=== PATIENT | female | born 1945 | race Caucasian/White ===

== ENCOUNTER 2016-10-09 07:15 | Day surgery (SDC) | payer OTHER ==
[~2016-10-09] VITALS: Ht 153.7 cm; Wt 92.5 kg
[~2016-10-09 07:15] MED LIST: ASPIRIN ADULT L81 M1 PO; ESTRADIOL0.5 MG PO; GABAPENTIN400 MG PO; HYDROCHLOROTHIA25 MG PO; IRON325 MG PO; LISINOPRIL10 MG PO; PRAVACHOL40 MG PO; VITAMIN C500 M1 PO
--- NOTE | 2016-10-09 10:14 | Provider's Discharge Care Plan ---
Problem, Goal, Plan Problem List 1. STATUS POST EGD Goals: Diagnostic testing, Screening Instructions: Follow up as directed, Take meds as directed
--- NOTE | 2016-10-09 10:14 | Provider's Discharge Care Plan ---
Problem, Goal, Plan Problem List 1. STATUS POST EGD Goals: Diagnostic testing, Screening Instructions: Follow up as directed, Take meds as directed
--- NOTE | 2016-10-09 10:23 | Operative Report ---
Operative Report Date of Surgery: 10/09/16 Preoperate Diagnosis: anemia, unknown etiology Postoperative Diagnosis: anemia, unknown etiology, colonoscopy, Schatzki's ring, hiata Surgeon: Bhargav Marshall MD Hvac Tech Surgeon: none Procedure Performed: Colonoscopy. EGD with gastric and esophageal mucosal biopsies Anesthesia: Total intravenous anesthesia Indications: This 71-year-old female six-month history of fatigue. Recent workup indicated patient was anemic. FINDINGS: Normal appearing cecum, ascending, transverse, descending and sigmoid colon. The rectal wall normal. EGD normal-appearing duodenum and duodenal bulb. The gastric mucosal pattern appeared grossly normal. EG junction approximately 40 cm from the dental incisors. Noted to have a Schatzki's ring and a small hiatal hernia. The radius was normal. Surgical Technique: Patient brought to the operating room placed in the left lateral decubitus position. Patient was administered total intravenous anesthesia.. Once anesthesia had taken affect, the posterior pharynx was sprayed using Cetacaine spray. An Olympus fiberoptic video upper GI endoscope was passed in to the patient's posterior pharynx. The esophagus intubated under direct visualization. The scope passed easily down the esophagus through the EG junction which was located approximately at 40 cm from the incisors. The scope passed easily through the EG junction into the gastric lumen and eventually into the second third portion of duodenum. On withdrawing the scope, the afore mentioned findings were noted. The scope was withdrawn into the gastric lumen and retroflexed. Good view of the cardia, fundus, EG junction from below, and greater and lesser curvature. Multiple random biopsies were obtained of the gastric mucosa to rule out H. pylori. The scope was withdrawn into the EG junction. Multiple random biopsies were obtained of the distal esophagus to rule out Castillo's esophagus. The scope was then completely withdrawn. Patient tolerated procedure well. Patient was transferred to the recovery room in stable condition. There were no intraoperative or anesthetic complications.
[2016-10-09 11:51] VITALS: BP 155/87
== END 2016-10-09 11:50 | disposition home or self-care (01) ==
LOC: OR SRH 07:15 → SCU SRH 07:31 → OR SRH 09:30
PROVIDERS: Specialist
PROC: 0DB68ZX Excision of Stomach, Via Natural or Artificial Opening Endoscopic, Diagnostic (ICD-10-PCS; principal; 2016-10-09 09:30)
PROC: 0DB38ZX Excision of Lower Esophagus, Via Natural or Artificial Opening Endoscopic, Diagnostic (ICD-10-PCS; principal; 2016-10-09 09:30)
DX: D64.9 Anemia, unspecified (principal); K22.2 Esophageal obstruction; K44.9 Diaphragmatic hernia without obstruction or gangrene; K29.50 Unspecified chronic gastritis without bleeding; I10 Essential (primary) hypertension
CPT/HCPCS: 29229; 29240; 50004; 60001; 82943; 83526; 90705